=== PATIENT | female | born 1990 | race Hispanic/Latino ===

== ENCOUNTER 2019-01-28 12:21 | Emergency (ER) | payer OTHER ==
[2019-01-28 13:05] LABS: Urine Blood TRACE (NEG); Urine Glucose NEGATIVE (NEG); Urine Protein NEGATIVE (NEG); Urine Specific Gravity 1.015 (1.005-1.030)
[2019-01-28 13:28] LABS: Urine Bacteria <20 /HPF (<20); Urine RBC <5 /HPF (NONE SEEN)
[2019-01-28 13:29] LABS: Urine Culture Reflex Order NOT NEEDED
--- NOTE | 2019-01-28 14:30 | ER ---
Nurse's Notes [facility] Name: Kaylen De Dios Age: 28 yrs Sex: Female : 1990 Arrival Date: 01/28/2019 Time: 12:24 Bed 25 Private MD: Unknown, Unknown Diagnosis: Myalgia;Malaise and fatigue; state, incidental Presentation: 01/28 12:34 Presenting complaint: Patient states: my body is aching really really bad, started late tw2 last night, i was tossing and turning, i tried to use a heating pad,i lost my voice 3 days ago and i dont know if something was coming, i am a little congested and i have a cough. Presenting complaint: Patient states: "i am having some pain right in the middle like someone punched me and sometimes when i wear a bra its like it feels too tight". Transition of care: patient was not received from another setting of care. Onset of symptoms was January 28, 2019. Risk Assessment: Do you want to hurt yourself or someone else? Patient reports no desire to harm self or others. Initial Sepsis Screen: Does the patient meet any 2 criteria? No. Patient's initial sepsis screen is negative. Does the patient have a suspected source of infection? No. Patient's initial sepsis screen is negative. Care prior to arrival: None. 12:34 Method Of Arrival: Ambulatory tw2 12:34 Acuity: MAURICIO 3 tw2 Triage Assessment: 12:36 General: Appears in no apparent distress. Behavior is calm, cooperative, appropriate tw2 for age. Pain: Complains of pain in epigastric area. GI: Reports diarrhea, since yesterday. 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 - Social history:: Smoking status: . - Ebola Screening: : Patient denies travel to an Ebola-affected area in the 21 days before illness onset. Screenin:49 Abuse screen: Denies threats or abuse. Denies injuries from another. Nutritional aj1 screening: No deficits noted. Tuberculosis screening: No symptoms or risk factors identified. 14:55 Fall Risk None identified. aj1 Assessment: 12:49 General: Appears in no apparent distress. uncomfortable, Behavior is calm, cooperative, aj1 appropriate for age. Pain: Complains of pain in low back area and abdomen Pain does not radiate. Neuro: Level of Consciousness is awake, alert, obeys commands. Cardiovascular: Patient's skin is warm and dry. Respiratory: Airway is patent Respiratory effort is even, unlabored, Respiratory pattern is regular, symmetrical. GI: Reports cramping. : Reports vaginal discharge, states that she has had frequent UTI's so she thought she might have a UTI or be dehydrated so she has been drinking lots of water Denies vaginal bleeding. EENT: No signs and/or symptoms were reported regarding the EENT system. Derm: No signs and/or symptoms reported regarding the dermatologic system. Skin is pink, warm \\T\\ dry. normal. Musculoskeletal: No signs and/or symptoms reported regarding the musculoskeletal system. Circulation, motion, and sensation intact. 13:50 Reassessment: Patient appears in no apparent distress at this time. No changes from aj1 previously documented assessment. Patient and/or family updated on plan of care and expected duration. Pain level reassessed. Patient is alert, oriented x 3, equal unlabored respirations, skin warm/dry/pink. 14:54 Reassessment: Patient appears in no apparent distress at this time. No changes from aj1 previously documented assessment. Patient and/or family updated on plan of care and expected duration. Pain level reassessed. Patient is alert, oriented x 3, equal unlabored respirations, skin warm/dry/pink. Vital Signs: 12:37 BP 129 / 73; Pulse 90; Resp 17; Temp 97.4(O); Pulse Ox 100% on R/A; Weight 77.11 kg tw2 (R); Height 5 ft. 2 in. (157.48 cm) (R); Pain 6/10; 14:54 BP 110 / 59; Pulse 85; Resp 18; Pulse Ox 100% on R/A; aj1 12:37 Body Mass Index 31.09 (77.11 kg, 157.48 cm) tw2 ED Course: 12:24 Patient arrived in ED. ag5 12:25 Unknown, Unknown is Private Physician. ag5 12:29 Juhi Abdul FNP-C is [facility]. snw 12:30 Crispin Solis MD is Attending Physician. snw 12:36 Triage completed. tw2 12:36 Arm band placed on. tw2 12:43 Izabella Sánchez, RN is Primary Nurse. aj1 12:49 Patient has correct armband on for positive identification. Bed in low position. Call aj1 light in reach. Side rails up X 1. 12:49 No provider procedures requiring assistance completed. aj1 14:55 Patient did not have IV access during this emergency room visit. aj1 Administered Medications: No medications were administered Outcome: 14:30 Discharge ordered by . snw 14:55 Discharged to home ambulatory. aj1 14:55 Condition: good 14:55 Discharge instructions given to patient, Instructed on discharge instructions, follow up and referral plans. medication usage, Demonstrated understanding of instructions, follow-up care, medications, Prescriptions given X 1. 14:56 Patient left the ED. aj1 Signatures: Izabella Sánchez, RN RN aj1 Juhi Abdul FNP-C AUTOMATION ENGINEERING TECHNICIAN-Roxy Rudolph RN RN tw2 Cabrera Amato ag5
--- NOTE | 2019-01-28 14:30 | EDPHYS ---
Physician Documentation [facility] Name: Kaylen De Dios Age: 28 yrs Sex: Female : 1990 Arrival Date: 01/28/2019 Time: 12:24 Bed 25 Private MD: Unknown, Unknown ED Physician Crispin Solis HPI: 01/28 14:18 This 28 yrs old Female presents to ER via Ambulatory with complaints of BODY snw SORE, . 14:18 Onset: The symptoms/episode began/occurred 2 day(s) ago, and became persistent. snw Associated signs and symptoms: Pertinent positives: upper back pain. The patient has not experienced similar symptoms in the past. The patient has not recently seen a physician. + test three days ago, unable to recall last menstrual cycle. 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 - Social history:: Smoking status: . - Ebola Screening: : Patient denies travel to an Ebola-affected area in the 21 days before illness onset. ROS: 14:16 Constitutional: Negative for fever, chills, and weight loss, Eyes: Negative for injury, snw pain, redness, and discharge, ENT: Negative for injury, pain, and discharge, Neck: Negative for injury, pain, and swelling, Cardiovascular: Negative for chest pain, palpitations, and edema, Respiratory: Negative for shortness of breath, cough, wheezing, and pleuritic chest pain, Abdomen/GI: Negative for abdominal pain, nausea, vomiting, diarrhea, and constipation, : Negative for injury, bleeding, discharge, and swelling, MS/Extremity: Negative for injury and deformity, Skin: Negative for injury, rash, and discoloration, Neuro: Negative for headache, weakness, numbness, tingling, and seizure, Psych: Negative for depression, anxiety, suicide ideation, homicidal ideation, and hallucinations. 14:16 Back: Positive for pain with movement, Negative for injury or acute deformity, decreased range of motion, radiated pain, acute changes. Exam: 14:16 Constitutional: This is a well developed, well nourished patient who is awake, alert, snw and in no acute distress. Head/Face: Normocephalic, atraumatic. Eyes: Pupils equal round and reactive to light, extra-ocular motions intact. Lids and lashes normal. Conjunctiva and sclera are non-icteric and not injected. Cornea within normal limits. Periorbital areas with no swelling, redness, or edema. ENT: Nares patent. No nasal discharge, no septal abnormalities noted. Tympanic membranes are normal and external auditory canals are clear. Oropharynx with no redness, swelling, or masses, exudates, or evidence of obstruction, uvula midline. Mucous membranes moist. Neck: Trachea midline, no thyromegaly or masses palpated, and no cervical lymphadenopathy. Supple, full range of motion without nuchal rigidity, or vertebral point tenderness. No Meningismus. Chest/axilla: Normal chest wall appearance and motion. Nontender with no deformity. No lesions are appreciated. Cardiovascular: Regular rate and rhythm with a normal S1 and S2. No gallops, murmurs, or rubs. Normal PMI, no JVD. No pulse deficits. Respiratory: Lungs have equal breath sounds bilaterally, clear to auscultation and percussion. No rales, rhonchi or wheezes noted. No increased work of breathing, no retractions or nasal flaring. Abdomen/GI: Soft, non-tender, with normal bowel sounds. No distension or tympany. No guarding or rebound. No evidence of tenderness throughout. Back: No spinal tenderness. No costovertebral tenderness. Full range of motion. Skin: Warm, dry with normal turgor. Normal color with no rashes, no lesions, and no evidence of cellulitis. MS/ Extremity: Pulses equal, no cyanosis. Neurovascular intact. Full, normal range of motion. Neuro: Awake and alert, GCS 15, oriented to person, place, time, and situation. Cranial nerves II-XII grossly intact. Motor strength 5/5 in all extremities. Sensory grossly intact. Cerebellar exam normal. Normal gait. Psych: Awake, alert, with orientation to person, place and time. Behavior, mood, and affect are within normal limits. Vital Signs: 12:37 BP 129 / 73; Pulse 90; Resp 17; Temp 97.4(O); Pulse Ox 100% on R/A; Weight 77.11 kg tw2 (R); Height 5 ft. 2 in. (157.48 cm) (R); Pain 6/10; 14:54 BP 110 / 59; Pulse 85; Resp 18; Pulse Ox 100% on R/A; aj1 12:37 Body Mass Index 31.09 (77.11 kg, 157.48 cm) tw2 MDM: 12:56 Patient medically screened. snw 14:50 Data reviewed: vital signs, nurses notes. Data interpreted: Pulse oximetry: on room air snw is 100 %. Interpretation: normal. Counseling: I had a detailed discussion with the patient and/or guardian regarding: the historical points, exam findings, and any diagnostic results supporting the discharge/admit diagnosis, lab results, the need for outpatient follow up, to return to the emergency department if symptoms worsen or persist or if there are any questions or concerns that arise at home. Special discussion: Based on the history and exam findings, there is no indication for further emergent testing or inpatient evaluation. I discussed with the patient/guardian the need to see the primary care provider for further evaluation of the symptoms. 01/28 12:33 Order name: Urine Microscopic Only; Complete Time: 13:30 snw 01/28 12:59 Order name: Flu; Complete Time: 14:29 snw 01/28 12:33 Order name: Urine Test (obtain specimen); Complete Time: 12:49 snw 01/28 12:33 Order name: Urine Dipstick-Ancillary (obtain specimen); Complete Time: 12:49 snw 01/28 13:01 Order name: Urine Dipstick--Ancillary (enter results); Complete Time: 13:23 bd 01/28 13:01 Order name: Urine --Ancillary (enter results); Complete Time: 13:23 bd Administered Medications: No medications were administered Disposition: 20:38 Co-signature as Attending Physician, Crispin Solis MD Available for consultation at ps1 all times . Disposition: 01/28/19 14:30 Discharged to Home. Impression: Myalgia, Malaise and fatigue, state, incidental. - Condition is Stable. - Discharge Instructions: First Trimester of , [id number], Fatigue, Cryotherapy, Heat Therapy. - Prescriptions for Vitamin 27- 0.8 mg Oral Tablet - take 1 tablet by ORAL route once daily; 60 tablet. - Work release form, Medication Reconciliation Form, Thank You Letter, Antibiotic Education, Prescription Opioid Use form. - Follow up: Private Physician; When: 2 - 3 days; Reason: Recheck today's complaints, Continuance of care, Re-evaluation by your physician. Follow up: Emergency Department; When: As needed; Reason: Worsening of condition. Signatures: Dispatcher [employer] EDMS Izabella Sánchez RN RN aj1 Juhi Abdul, TOBIN-C ROCKBOARD LATHER-Csnw Roxy Macdonald RN RN tw2 Crispin Solis MD MD ps1 Corrections: (The following items were deleted from the chart) 14:56 14:30 01/28/2019 14:30 Discharged to Home. Impression: Myalgia; Malaise and fatigue; aj1 state, incidental. Condition is Stable. Forms are Medication Reconciliation Form, Thank You Letter, Antibiotic Education, Prescription Opioid Use. Follow up: Private Physician; When: 2 - 3 days; Reason: Recheck today's complaints, Continuance of care, Re-evaluation by your physician. Follow up: Emergency Department; When: As needed; Reason: Worsening of condition. snw
== END 2019-01-28 14:56 | disposition home or self-care (01) ==
LOC: ER 12:21
DX: R53.81 Other malaise (principal); R53.83 Other fatigue; Z33.1 Pregnant state, incidental
CPT/HCPCS: 81003; 81015; 81025; 87804